=== PATIENT | male | born 1960 | race Caucasian/White ===

== ENCOUNTER 2017-04-09 14:14 | Emergency (ER) | payer OTHER ==
[~2017-04-09] VITALS: Ht 177.8 cm; Wt 79.4 kg
--- NOTE | ~2017-04-09 | EKG ---
[address] [place] [address] ELECTROCARDIOGRAM REPORT Name: BRANDT WEBSTER Room #: REG GENE Romero#: [id number] Admission: 04/09/17 Attend Phys: Discharge: Date of : 60 Report #: [id number] THIS REPORT FOR: //name// [facility] ED Test Date: 2017-04-09 Test Time: 15:15:47 Pat Name: BRANDT WEBSTER Department: Room: Gender: M Cash Person: MARCELLA : 1960 Requested By: Darwin Winn Order Number: [id number] MD: Rupesh Beltrán Measurements Intervals Paton Rate: 81 P: 37 VT: 155 QRS: -40 QRSD: 118 T: 63 QT: 403 QTc: 468 Interpretive Statements Sinus rhythm Nonspecific IVCD with LAD No previous ECG available for comparison Electronically Signed On 04-09-2017 16:49:28 TELEVISION REPAIR TEACHER by Rupesh Beltrán [email or web address] <ELECTRONICALLY SIGNED> By: Rupesh Beltrán MD, [facility] 04/09/17 1649 1515 1515 Rupesh Beltrán MD, FACC /EPI
[~2017-04-09 14:14] MED LIST: ARTHROTEC 75 T1 EAC1 PO; ULTRACET TABLE1 EACH PO
[2017-04-09 14:57] LABS: BASOPHILS 0.5 % (0.0-2.0); EOSINOPHILS 0.1 % (0.0-3.0); HEMATOCRIT 31.7 % (42.0-52.0); LYMPHOCYTES 10.8 % (24.0-44.0); MCH 24.2 pg (26.0-34.0); MCHC 31.4 g/dL (28.0-37.0); MCV 76.9 fL (80.0-100.0); MONOCYTES 6.8 % (1.0-8.0); PLATELET COUNT 179 thou/uL (150-400); POLYS 81.8 % (36.0-66.0); RBC 4.12 mil/uL (4.50-6.00); RDW 22.6 % (10.5-14.5); WBC 12.3 thou/uL (4.0-11.0)
[2017-04-09 15:07] LABS: ANION GAP 10 mmol/L (7-16); BUN 11 mg/dL (7-18); CHLORIDE 103 mmol/L (98-107); CO2 25 mmol/L (21-32); CREATININE 0.7 mg/dL (0.7-1.3); GLUCOSE 114 mg/dL (74-106); POTASSIUM 3.6 mmol/L (3.5-5.1); SODIUM 138 mmol/L (136-145)
[2017-04-09 15:15] LABS: ALBUMIN 3.1 g/dL (3.4-5.0); SGOT 23 U/L (15-37); SGPT 18 U/L (30-65); TOTAL BILIRUBIN 0.3 mg/dL (<0.1-1.0); TROPONIN-I < 0.04 ng/mL (<0.06)
== END 2017-04-09 17:42 | disposition home or self-care (01) ==
LOC: ER 14:14
PROVIDERS: Physician Assistant
DX: R55 Syncope and collapse (principal); F10.920 Alcohol use, unspecified with intoxication, uncomplicated; D64.9 Anemia, unspecified; M54.9 Dorsalgia, unspecified

== ENCOUNTER 2017-06-12 22:56 | Emergency (ER) | payer OTHER ==
[~2017-06-12] VITALS: Ht 177.8 cm; Wt 93.9 kg
[2017-06-13 00:34] LABS: ABSOLUTE NEUTROPHILS 4.1 thou/uL (1.4-8.2); BASOPHILS 1.4 % (0.0-2.0); EOSINOPHILS 2.5 % (0.0-3.0); HEMOGLOBIN 12.8 gm/dL (14.0-18.0); MCH 29.4 pg (26.0-34.0); MCHC 32.8 g/dL (28.0-37.0); MCV 89.6 fL (80.0-100.0); MONOCYTES 7.5 % (1.0-8.0); PLATELET COUNT 197 thou/uL (150-400); POLYS 49.6 % (36.0-66.0); RBC 4.36 mil/uL (4.50-6.00); RDW 24.6 % (10.5-14.5); WBC 8.3 thou/uL (4.0-11.0)
[2017-06-13 00:49] LABS: APTT 26.9 Seconds (24.5-32.8); INR 1.1
[2017-06-13 01:05] LABS: ANION GAP 8 mmol/L (7-16); BUN 18 mg/dL (7-18); CALCIUM 8.4 mg/dL (8.5-10.1); CHLORIDE 106 mmol/L (98-107); CO2 23 mmol/L (21-32); CREATININE 0.6 mg/dL (0.7-1.3); GLUCOSE 119 mg/dL (74-106); SODIUM 137 mmol/L (136-145)
[2017-06-13 01:11] LABS: DIRECT BILIRUBIN < 0.1 mg/dL (<0.1-0.3); LIPASE 200 U/L (73-393); SGOT 28 U/L (15-37); SGPT 27 U/L (30-65); TOTAL BILIRUBIN 0.1 mg/dL (<0.1-1.0); TOTAL PROTEIN 7.3 g/dL (6.4-8.2)
== END 2017-06-13 04:00 | disposition home or self-care (01) ==
LOC: ER 22:56
PROVIDERS: Emergency Medicine
DX: F10.129 Alcohol abuse with intoxication, unspecified (principal); K74.60 Unspecified cirrhosis of liver; F17.210 Nicotine dependence, cigarettes, uncomplicated

== ENCOUNTER 2017-10-24 08:48 | Emergency (ER) | payer OTHER ==
[~2017-10-24] VITALS: Ht 177.8 cm; Wt 99.8 kg
[2017-10-24 10:16] VITALS: BP 120/68
== END 2017-10-24 10:17 | disposition home or self-care (01) ==
LOC: ER 08:48
DX: F10.10 Alcohol abuse, uncomplicated (principal); M79.601 Pain in right arm; K72.90 Hepatic failure, unspecified without coma; F17.210 Nicotine dependence, cigarettes, uncomplicated; Z85.47 Personal history of malignant neoplasm of testis